=== PATIENT | female | born 1930 | race Caucasian/White ===

== ENCOUNTER → 2017-03-26 | Outpatient (CLI) | payer MEDICARE, OTHER ==
[~2017-03-26] MED LIST: ACETAMINOP160 MG/51 PO; ACETAMINOP500 MG/5 M PO; ANUSOL-HC CREAM30 GM R; ARMOUR THYROID60 MG PO; ARTIFICIAL TEAR15 M2 TOP; ASPIRIN LO-DOSE81 MG PO; BETADINE SOLUT118 ML TOP; BIOTENE)(DRY MO16 OZ PO; DULCOLAX10 MG R; GLUCOSE4 GM PO; HUMULIN 70100 UNIT/M SUB-Q; LASIX20 MG PO; MAALOX LIQ UNIT30 ML PO; MILK OF MA400 MG/5 M PO; MYCOSTATIN(NYST15 GM TOP; PREMARIN0.625 MG PO; PREMARIN1.25 MG PO; PROTONIX40 MG PO; SYSTANE 0.3-0.440 ML TOP; TRAMADOL HCL50 MG PO; TYLENOL)(FEVERA80 MG PO; TYLENOL325 MG PO; VITAMIN B-122000 MC1 PO; VITAMIN B-122500 MCG SL; ZOFRAN4 MG PO
[2017-03-26 16:35] LABS: BILIRUBIN URINE NEGATIVE (NEGATIVE); BLOOD URINE 50 /UL (NEGATIVE); COLOR URINE YELLOW (YELLOW); GLUCOSE URINE NEGATIVE (NEGATIVE); KETONE URINE NEGATIVE (NEGATIVE); LEUKOCYTES URINE 500 /UL (NEGATIVE); NITRITE URINE NEGATIVE (NEGATIVE); PROTEIN URINE 30 mg/dL (NEGATIVE); TURBIDITY URINE 3+ (CLEAR); UROBILINOGEN URINE 1 mg/dL (NORMAL)
[2017-03-26 16:45] LABS: BACTERIA URINE MANY (NEGATIVE); RBC URINE NEGATIVE #/HPF (NEGATIVE); WBC URINE 20-50 #/HPF (NEGATIVE)
[2017-03-26 16:48] LABS: WBC CLUMPS URINE FEW (NEGATIVE)
== END | disposition disaster alternative care site (69) ==
LOC: LHULL 16:30
PROVIDERS: Family Medicine
DX: N39.0 Urinary tract infection, site not specified (principal)

== ENCOUNTER 2017-05-29 11:05 | Emergency (ER) | payer MEDICARE, OTHER ==
--- NOTE | ~2017-05-29 | ER ---
PATIENT'S NAME: GIANFRANCO REED [facility] AGE: 86 Y [address] ROOM: [place] [address] LOCATION: [facility] ADMIT DATE: 05/29/2017 ER/Outpatient Report DISCHARGE DATE: 05/29/2017 FAMILY PHYSICIAN: Jalil Ramos MD ATTENDING PHYSICIAN: Marcial Zarco CHIEF COMPLAINT: Possible stroke. HISTORY OF PRESENT ILLNESS: Ms. Reed arrives by ambulance from [facility]. She was last known normal at approximately 09:10 and 09:15 this morning. At 10 o'clock, she was evaluated by a medicare coordinator at the facility. They noted that she was not acting her normal self at that time and called 911. Her vital signs had been relatively normal for them otherwise. They are noting that she has more left- sided weakness than usual and is more confused. 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 They discussed the case with the family prior to bringing the patient in. She has had a very rough medical history recently including right above knee amputation and significant pain in the left lower extremity which are chronic. She has multiple allergies and is on multiple medications. She doctors primarily with Dr. Jalil Ramos. She denies any other symptoms at this time. PAST MEDICAL HISTORY: Documented on the record and reviewed by me. SOCIAL HISTORY: Documented on the record and reviewed by me. MEDICATIONS: Documented on the record and reviewed by me. ALLERGIES: DOCUMENTED ON THE RECORD AND REVIEWED BY ME. REVIEW OF SYSTEMS: All systems were reviewed and negative except as noted in the HPI. PHYSICAL EXAMINATION: VITAL SIGNS: Blood pressure 156/78, pulse 87, respiratory rate is 20, temperature 97.8, and SpO2 is 98% on room air. GENERAL: Frail-appearing female, appearing stated age. No other signs of pain or distress. NEUROLOGIC: The patient has a slight speech impediment and flattening of the left nasal labial fold. She has difficulty regarding her left side. She has PATIENT'S NAME: GIANFRANCO REED [facility] AGE: 86 Y [address] ROOM: [place], [place] [address] LOCATION: [facility] ADMIT DATE: 05/29/2017 ER/Outpatient Report DISCHARGE DATE: 05/29/2017 FAMILY PHYSICIAN: Jalil Ramos MD ATTENDING PHYSICIAN: Marcial Zarco difficulty identifying objects on the left side of the vision, but not on the right. Vision appears to be grossly intact. She does not have any pronator drift. She is able to activate all muscle groups and there is slight if any detectable asymmetry of the bilateral upper extremity weakness. She has right above knee amputation making evaluation in that extremity difficult, however, the left lower extremity sometimes has trouble following commands. Sensation appears to be grossly intact throughout. HEENT: Normocephalic, atraumatic. Eyes are PERRL. Oropharynx is slightly dry, but otherwise unremarkable. No erythema or exudates. NECK: Supple. Trachea is midline. CHEST: Heart is regular rate and rhythm with no murmurs. LUNGS: Clear to auscultation bilaterally with no rhonchi, wheezes, or rales. ABDOMEN: Soft, nontender, and nondistended. No rebound or guarding. EXTREMITIES: Warm and well perfused with the notable exception of the right lower extremity with the amputation. BACK: Normal to inspection and palpation. SKIN: Clean, dry, and intact as noted above. Of note, she is very sensitive with painful expressions with any manipulation of her person et al. LABORATORY DATA AND X-RAYS: CT of the brain is reported as stable with no acute changes per Radiology. EKG, initial and repeat are notable for what appears to be sinus rhythm versus supraventricular rhythm with frequent PVCs. No signs of acute ischemia. Overall stable morphology from prior EKG dated 06/02/2016. CBC without appreciable abnormality. INR is less than 1. Renal panel with slight elevation of chloride at 113, otherwise unremarkable. Electrolytes: Creatinine 1.6. GFR is 31. Both improved from most recent labs at this facility. Albumin and phosphorus are reviewed as well. Phosphorus unremarkable and albumin slightly low at 2.4. Troponin initial and repeat are undetectable. Urinalysis is nitrite positive, and appears to be a good sample. IMPRESSION: 1. Transient neurologic findings not consistent with stroke or TIA. 2. Urinary tract infection. 3. Frequent PVCs. EMERGENCY DEPARTMENT COURSE: The patient was seen and evaluated as a stroke alert stroke protocol. Dr. Akers did evaluate the patient. After patient's evaluation, we are in agreement that this is likely not a stroke. Family was able to confirm that they think she is at her normal baseline and do not appreciate any unusual abnormalities. With that information and minimal deficits, that are clearly PATIENT'S NAME: GIANFRANCO REED [facility] AGE: 86 Y [address] ROOM: [place] [address] LOCATION: [facility] ADMIT DATE: 05/29/2017 ER/Outpatient Report DISCHARGE DATE: 05/29/2017 FAMILY PHYSICIAN: Jalil Ramos MD ATTENDING PHYSICIAN: Marcial Zarco she is not a tPA candidate at this time. With the urinary tract infection, I believe this could be contributing to her current subtle changes in her mental status. Based on her med list, the only medications that she can or will take for antibiotics is amoxicillin. I do not know if her urine will be susceptible to this medication; however, she refused other antibiotic options. So we will start her on amoxicillin. I discussed the case with Dr. Gutierrez, on-call advertising analyst for patient's primary advertising analyst, Dr. Contreras at [facility]. He has requested that we initiate a 24-hour Holter monitor for the patient to see what is going on with these PVCs. This will be done. The patient is to follow up with Dr. Ramos and Dr. Contreras early in the next week after her Holter monitor is complete. I believe at this time that she has no reason to be in the hospital. I discussed the case with the family. They are in agreement. She will be discharged back to [facility] with a prescription for amoxicillin and her Holter monitor. All questions were answered to the best of my ability, and the patient was discharged in good condition back to [facility]. MD MARK ANTHONY CHAMPAGNE/karrie /[id number] d: 05/30/17 1429 t: 06/15/17 1214, OUTPATIENT REPORT
--- NOTE | ~2017-05-29 | CON ---
PATIENT'S NAME: GIANFRANCO REED [facility] AGE: 86 Y [address] ROOM: [place] [address] LOCATION: [facility] ADMIT DATE: 05/29/2017 Consultation DISCHARGE DATE: 05/29/2017 FAMILY PHYSICIAN: Jalil Ramos MD ATTENDING PHYSICIAN: Marcial Zarco DATE OF CONSULTATION: 05/29/2017 HISTORY OF PRESENT ILLNESS: Ms. Reed was sent in from [facility], where she resides for few months since a very busy unfortunate year. 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 I was called to assess the patient on a Stroke Code today. Apparently, she was not acting her usual self according to the persons at the facility. She was tending to neglect her left-side of her body more than usual and was answering somewhat less spontaneously. Upon her arrival here, she followed all commands though she had clearly a left-sided neglect, which was her baseline due to her right-sided stroke. She did not display any weakness on her left-side, but within a few minutes of arriving, she seemed to be back to her normal baseline. She was able to answer questions appropriately. I scored the patient essentially 0 based upon any new findings suggestive of a stroke. The patient has a baseline left hemianopsia along with left hemisensory neglect to 2-point discrimination as well as to double simultaneous stimulation. At baseline, she is somewhat weak in her left leg and in her left upper extremity though she could raise her arm she had a bit of tenderness at the shoulder. She did not have any new presentation of aphasia and she was able to follow all commands appropriately and she did not have any slurring of speech. We took the patient into a CAT scan, which was reviewed from her known stroke at the time of presentation back in June of 2016. Today's CAT scan did reveal the old area of stroke, but no areas of evolving stroke was seen and no areas of hemorrhage was seen. PAST MEDICAL HISTORY: She does have a history of type 2 diabetes, COPD, hypertension, heart failure, hypothyroidism, coronary artery disease, history of atrial fibrillation, not on anticoagulation, apparently, the patient has a history of esophageal strictures, did poorly on oral antiplatelet agent, may have been on antithrombotic agents in the past, and may have been on anticoagulation in the past, she has refused anticoagulation knowing known risk for atrial fibrillation related stroke, a history of impacted left femoral neck fracture of the legs, chronic left knee pain. Furthermore, just to be more elaborate here, she has a history a right foot infection, secondary to diabetes, PATIENT'S NAME: GIANFRANCO REED [facility] AGE: 86 Y [address] ROOM: [place], [place] [address] LOCATION: [facility] ADMIT DATE: 05/29/2017 Consultation DISCHARGE DATE: 05/29/2017 FAMILY PHYSICIAN: Jalil Ramos MD ATTENDING PHYSICIAN: Marcial Zarco peripheral vascular disease, this became worrisome and developed gangrene and resulted in the patient having a right leg amputation in August of 2016. ALLERGIES: IT IS NUMEROUS TO LIST HERE. SOCIAL HISTORY: She smoked for about 10 years in the past, but stopped nearly 40 years ago. She does not drink alcohol. 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 REVIEW OF SYSTEMS: The patient had some alteration in her sensorium, which seemed to be related to poor response to questioning and possibly more neglect of her left-side. This lasted only few minutes and had essentially resolved by the time she arrived here in our hospital. At baseline, she has cortical neglect of her left-side and the left hemianopsia. According to her daughter who is present today, she did not have any worsening of her symptoms at baseline. She was conversational, upon my seeing her, she did not have any new aphasia or new focal neurologic deficits. PHYSICAL EXAMINATION: VITAL SIGNS: Revealed a pulse of 77 and frequent paroxysmal beats, respiratory rate 16, blood pressure 146/66, and temperature 97.7. NEUROLOGIC: Cranial nerves, there is some flattening of the left-face, her left eye does not close as tightly as the right eye. There is normal crinkling of the left forehead. There is perhaps a subtle snarl to her smile on the left face, which according to the daughter is chronic. She does not have any slurring of her speech. Normal sensation V1 through V3. Neck is supple on flexion and extension. Her left upper extremity, she can elevate the arm without any evidence of pronator drift, but there was some proximal pain at the shoulder, which does not allow her to keep the arm fully elevated for more than 15 seconds. Her left lower extremity, she is able to the elevate the legs above the bed for about 8 seconds and slowly drifts it down. I would say the power of the left leg is 4+/5 both proximally and distally. The right lower extremity is amputated. Right upper extremity reveals full power. There is normal bulk of the bilateral upper extremities. The left lower extremity reveals a deformity of the left foot likely Charcot joint with severe hammertoes and severe left great toe bunion. There is some deformity of the arch of the foot. The leg appears to have some slight increase in girth. There is no obvious pain into the legs. Sensory exam, 2-point discrimination is poor in all the extremities. Right and left discrimination is intact for single right and left discrimination; however, double simultaneous discrimination is revealing neglect of her left hemibody. She has no anosognosia of her left arm and did identify all parts of her left body PATIENT'S NAME: GIANFRANCO REED [facility] AGE: 86 Y [address] ROOM: [place] [address] LOCATION: [facility] ADMIT DATE: 05/29/2017 Consultation DISCHARGE DATE: 05/29/2017 FAMILY PHYSICIAN: Jalil Ramos MD ATTENDING PHYSICIAN: Marcial Zarco and follows commands such as taking her left thumb and touching the right-side of her forehead. Grossly normal on [id number] and alternating hand movements were normal. IMPRESSION: Ms. Gianfranco Reed has extensive medical history and certainly a risk for recurrent stroke and known strokes are seen on the current CAT scan. There is no evidence of any evolving stroke here. The history of atrial fibrillation is known and certainly the patient is at risk for a recurrent atrial fibrillation related stroke. Today, her rhythm appears to be sinus, but with multiple premature ventricular contractions and this is unclear if this represents a new finding or this is her baseline. I discussed with her the issue of anticoagulation, which I believe has been brought up in the past; however, the patient absolutely refuses this so does the daughter due to concurrent multiple issues with her health including a prior history of esophageal stricture, which often requires procedures for dilatation and known history of gastrointestinal bleeds, history of a possible gastrointestinal bleed on either anticoagulation or antithrombotic agent, she clearly had a stroke back in 2015 that affected her left visual field and also resulted in some parietal-cortical neglect, back in October of 2014, she had admission for some what appeared to be a 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 The patient made a good recovery from the left middle cerebral artery stroke. I do not see much of a discussion about anticoagulation on prior notes and the note suggesting episodes of ventricular tachycardia, but it was mentioned back in 2013 that these were considered to be more of a supraventricular tachycardia, one note in the past mentioned that she had refused treatment with anticoagulation with known atrial fibrillation, I am not aware if the patient has any indwelling pacemaker, but this was also mentioned that there was a mention of a cardiac pacemaker back in a note in 2013. The patient's presentation today since there are no focal neurologic deficits, she may be followed here for any evidence of concurrent infection such as urinary tract infection and/or be monitored for her cardiac rhythm, which I believe is known to have paroxysmal extra beats. Today, based upon my evaluation with Dr. Zarco in the emergency room, the patient would not have been a candidate for tPA upon all of her symptoms being old known stroke signs that go along with the findings on the CAT scan performed today. It did not represent any new findings suggestive of an acute cerebrovascular accident. ALFONZO TOVAR MD JRM/ricardol PATIENT'S NAME: GIANFRANCO REED [facility] AGE: 86 Y [address] ROOM: [place] [id number] LOCATION: ED ADMIT DATE: 05/29/2017 Consultation DISCHARGE DATE: 05/29/2017 FAMILY PHYSICIAN: Jalil Ramos MD ATTENDING PHYSICIAN: Marcial Zarco /[id number] d: 05/29/17 2356 t: 06/02/17 1748, CONSULTATION REPORT
[2017-05-29 11:45] LABS: BASOPHIL # 0.1 K/uL (0.0-0.2); BASOPHIL % 0.5 %; EOSINOPHIL # 0.1 K/uL (0.0-0.5); EOSINOPHIL % 1.4 %; HEMATOCRIT 40.1 % (30.0-46.0); HEMOGLOBIN 12.2 g/dL (10.0-15.0); IMMATURE GRANULOCYTE % 0.2 %; LYMPHOCYTE # 2.9 K/uL (0.8-4.0); LYMPHOCYTE % 31.2 %; MCH 28.1 pg (27.0-34.0); MCHC 30.4 gm/dL (32.0-36.5); MCV 92.4 fl (83.0-98.0); MONOCYTE # 0.6 K/uL (0.0-1.0); MONOCYTE % 6.1 %; MPV 10.7 fl (9.4-12.4); NEUTROPHIL # (ANC) 5.6 K/uL (1.8-7.8); NEUTROPHIL % 60.6 %; NRBC % 0 /100WBC (0-0.00); PLATELET COUNT 297 K/uL (150-450); RBC 4.34 M/uL (3.00-5.00); RDW-CV 14.6 % (11.9-14.6); WBC 9.3 K/uL (4.0-11.0)
[2017-05-29 11:54] LABS: INR - (THERAPEUTIC) 0.97 (0.92-1.07); PROTIME 10.2 SECONDS (9.8-11.4); PTT 27 SECONDS (25-32)
[2017-05-29 11:58] LABS: ALBUMIN 2.4 gm/dL (3.5-5.0); ANION GAP 10.6 (10.0-19.0); CALCIUM 8.3 mg/dL (8.5-10.5); CREATININE 1.6 mg/dL (0.5-1.1); PHOSPHORUS 2.5 mg/dL (2.5-4.9); POTASSIUM 4.6 mMol/L (3.7-5.1)
[2017-05-29 13:00] LABS: BILIRUBIN URINE NEGATIVE (NEGATIVE); BLOOD URINE 25 /UL (NEGATIVE); COLOR URINE YELLOW (YELLOW); GLUCOSE URINE NEGATIVE (NEGATIVE); KETONE URINE 5 mg/dL (NEGATIVE); LEUKOCYTES URINE 25 /UL (NEGATIVE); NITRITE URINE POSITIVE (NEGATIVE); PROTEIN URINE 30 mg/dL (NEGATIVE); TURBIDITY URINE 3+ (CLEAR); UROBILINOGEN URINE 1 mg/dL (NORMAL)
[2017-05-29 13:03] LABS: EPITHELIAL URINE RARE #/HPF (NEGATIVE); RBC URINE RARE #/HPF (NEGATIVE)
[2017-05-29 13:04] LABS: AMORPHOUS URINE 2+ (NEGATIVE); BACTERIA URINE FEW (NEGATIVE)
[2017-05-29 14:32] LABS: CPK 46 IU/L (21-215)
== END 2017-05-29 16:01 | disposition disaster alternative care site (69) ==
LOC: GMED 11:05
PROVIDERS: Emergency Medicine
DX: I49.3 Ventricular premature depolarization (principal); R29.818 Other symptoms and signs involving the nervous system; N39.0 Urinary tract infection, site not specified; E11.9 Type 2 diabetes mellitus without complications; F41.9 Anxiety disorder, unspecified; E03.9 Hypothyroidism, unspecified; Z89.611 Acquired absence of right leg above knee; Z87.891 Personal history of nicotine dependence; Z79.4 Long term (current) use of insulin; Z87.81 Personal history of (healed) traumatic fracture; Z79.899 Other long term (current) drug therapy; Z87.19 Personal history of other diseases of the digestive system

== ENCOUNTER → 2017-05-29 | Outpatient (CLI) | payer MEDICARE, OTHER | END | disposition disaster alternative care site (69) | LOC: GAMB 10:44 | DX: R53.1 Weakness (principal); E11.9 Type 2 diabetes mellitus without complications; R47.81 Slurred speech; Z79.4 Long term (current) use of insulin; Z79.52 Long term (current) use of systemic steroids; Z79.82 Long term (current) use of aspirin; Z79.899 Other long term (current) drug therapy | CPT/HCPCS: A0425; A0427; J7030 ==